=== PATIENT | male | born 2000 | race Two or more races ===

== ENCOUNTER 2024-01-03 09:29 | Emergency (ER) | payer MEDICAID, OTHER ==
[2024-01-03] MEDS: HYDROmorphone 0.5 MG/0.5 ML Syringe IVPUSH ONE (11:14)
[2024-01-03] MEDS: Ketorolac 15 MG/ML SDV IVPUSH ONE (12:22)
== END 2024-01-03 12:50 | disposition home or self-care (01) ==
LOC: JP.ED 09:29
DX: S40.021A Contusion of right upper arm, initial encounter (principal); M62.838 Other muscle spasm; Y04.8XXA Assault by other bodily force, initial encounter; Y93.89 Activity, other specified
CPT/HCPCS: 72128; 73060; 76377; 96374; 96375; 99284; J1170; J1885